=== PATIENT | male | born 1945 | race Caucasian/White ===

== ENCOUNTER 2020-10-06 13:03 | Outpatient (REF) | payer MEDICARE, SELFPAY | END 2020-10-06 13:04 | disposition home or self-care (01) | LOC: HO.BBR 13:03 | PROVIDERS: Visit Provider Internal Medicine | DX: D45 Polycythemia vera (principal) | CPT/HCPCS: 85018; 99195 ==

== ENCOUNTER 2020-10-13 14:22 | Outpatient (REF) | payer MEDICARE, BC, SELFPAY | END 2020-10-13 14:23 | disposition home or self-care (01) | LOC: HO.BBR 14:22 | PROVIDERS: Visit Provider Internal Medicine | DX: D75.1 Secondary polycythemia (principal) | CPT/HCPCS: 36415; 85014; 85018; 99195 ==

== ENCOUNTER 2020-10-23 14:06 | Outpatient (REF) | payer MEDICARE, SELFPAY | END 2020-10-23 14:07 | disposition home or self-care (01) | LOC: HO.BBR 14:06 | PROVIDERS: Visit Provider Internal Medicine | DX: D75.1 Secondary polycythemia (principal) | CPT/HCPCS: 36415; 85018; 99195 ==

== ENCOUNTER 2020-10-31 07:57 | Outpatient (REF) | payer MEDICARE, SELFPAY | END 2020-10-31 07:58 | disposition home or self-care (01) | LOC: HO.BBR 07:57 | PROVIDERS: Visit Provider Internal Medicine | DX: D75.1 Secondary polycythemia (principal) | CPT/HCPCS: 85014; 85018; 99195 ==